=== PATIENT | female | born 1990 | race Caucasian/White ===

== ENCOUNTER → 2019-06-13 14:54 | Outpatient (CLI) | payer OTHER, SELFPAY ==
[2019-06-13 14:37] VITALS: BMI 57.9
[2019-06-13 15:28] LABS: Absolute Lymphocyte Count 2.49 X10^3/uL (0.83-4.51); Basophil# 0.08 X10^3/uL; Basophil% 0.8 % (0-1); Eosinophil# 0.25 X10^3/uL; Eosinophils% 2.6 % (0-5); Hematocrit 34.4 % (37-47); Lymphocyte # 2.49 X10^3/ul (4.0); Lymphocyte % 25.5 % (19-41); Mean Corpuscular Hgb 27.3 pg (27.0-32.0); Mean Corpuscular Volume 85.4 fL (81-99); Mean Platelet Vol. 9.4 fl (6.2-12.0); Monocyte# 0.85 X10^3/uL; Monocyte% 8.7 % (0-10); NRBC Flagged by Analyzer 0 % (0-5); Neutrophil # 6.04 X10^3/uL (2.7-7.7); Neutrophil % 61.9 % (47-70); Platelet Count 343 K/mm3 (150-450); RBC Distribution Width CV 13.3 % (11.6-14.6); RBC Distribution Width SD 41.6 fl (35.1-43.9); Red Blood Count 4.03 M/mm3 (4.2-5.4); White Blood Count 9.8 K/mm3 (4.4-11.0)
[2019-06-13 16:55] LABS: HIV - WCH Non-Reactive (Nonreactive); Hepatitis B Surface Antigen Non-Reactive (Nonreactive)
[2019-06-13 20:50] LABS: Chlamydia Trachomatis by PCR Negative (Negative); Neisserai gonorrhoeae by PCR Negative (Negative); Probe Check PASS; Sample Adequacy Control PASS; Specimen Processing Control PASS
[2019-06-15 01:53] LABS: Rapid Plasmin Reagin (RPR) NONREACTIVE (NONREACTIVE)
[2019-06-19 21:17] LABS: HPV Reflexed? NOT INDICATED
== END ==
LOC: PAVLAB 14:56
PROVIDERS: Referring Provider Obstetrics & Gynecology; Visit Provider Obstetrics & Gynecology
DX: Z34.90 Encounter for supervision of normal pregnancy, unspecified, unspecified trimester (principal); Z12.4 Encounter for screening for malignant neoplasm of cervix
CPT/HCPCS: 36415; 85025; 86592; 86703; 86762; 86850; 86900; 86901; 87086; 87088; 87340; 87491; 87591; 88175; G0145

== ENCOUNTER → 2019-06-20 15:04 | Outpatient (CLI) | payer OTHER, SELFPAY ==
[2019-06-13 14:37] VITALS: BMI 57.9
[2019-06-20 15:33] LABS: Glucose Challenge Gest 1H 50g 113 mg/dL (70-140)
== END ==
PROVIDERS: Referring Provider Obstetrics & Gynecology; Visit Provider Obstetrics & Gynecology
DX: O09.90 Supervision of high risk pregnancy, unspecified, unspecified trimester (principal); Z3A.00 Weeks of gestation of pregnancy not specified
CPT/HCPCS: 36415; 82950

== ENCOUNTER → 2019-10-05 13:56 | Outpatient (CLI) | payer OTHER, SELFPAY ==
[2019-10-05 13:25] VITALS: BMI 57.9
[2019-10-05 14:32] LABS: Absolute Neutrophil Count 7.2 X10^3/uL (2.0-7.7); Basophil# 0.05 X10^3/uL; Basophil% 0.5 % (0-1); Eosinophil# 0.28 X10^3/uL; Eosinophils% 2.7 % (0-5); Hematocrit 31.6 % (37-47); Lymphocyte % 19.6 % (19-41); Mean Corp Hgb Conc 31.6 g/dL (32-36); Mean Corpuscular Hgb 27.1 pg (27.0-32.0); Mean Corpuscular Volume 85.6 fL (81-99); Mean Platelet Vol. 9.5 fl (6.2-12.0); Monocyte% 5.9 % (0-10); NRBC Flagged by Analyzer 0 % (0-5); Neutrophil # 7.19 X10^3/uL (2.7-7.7); Neutrophil % 70.4 % (47-70); Platelet Count 354 K/mm3 (150-450); RBC Distribution Width CV 13.2 % (11.6-14.6); RBC Distribution Width SD 40.4 fl (35.1-43.9); Red Blood Count 3.69 M/mm3 (4.2-5.4); White Blood Count 10.2 K/mm3 (4.4-11.0)
[2019-10-05 14:44] LABS: Protein, Urine (Random) 15.7 mg/dL (<11.9); Protein:Creat Ratio 74 mg/g CRE (0-200)
[2019-10-05 14:46] LABS: ALB/GLOB Ratio 0.7 RATIO (0.9-2.4); AST(SGOT) 9 U/L (15-37); Alanine Aminotransfer ALT/SGPT 17 U/L (13-56); Albumin, Serum 2.7 g/dL (3.2-5.0); Alkaline Phosphatase 71 U/L (45-117); Anion Gap 6 (5-15); BUN 6 mg/dL (7-18); BUN/Creat Ratio 11.3 RATIO (10-20); Calcium,Total 8.4 mg/dL (8.5-10.1); Chloride 105 mmol/L (98-107); Creatinine, Serum 0.53 mg/dL (0.55-1.02); EST Glomerular Filtration Rate 144 mL/min (>60); Est Glom Filt Rate - Afr Amer 174 mL/min (>60); Glucose 125 mg/dL (74-106); Glucose Challenge Gest 1H 50g 125 mg/dL (70-140); Potassium 3.8 mmol/L (3.5-5.1); Protein, Total 6.7 g/dL (6.4-8.2); Sodium Level 137 mmol/L (136-145)
== END ==
PROVIDERS: Referring Provider Obstetrics & Gynecology; Visit Provider Obstetrics & Gynecology
DX: O09.90 Supervision of high risk pregnancy, unspecified, unspecified trimester (principal); O26.892 Other specified pregnancy related conditions, second trimester; O16.2 Unspecified maternal hypertension, second trimester; Z3A.00 Weeks of gestation of pregnancy not specified
CPT/HCPCS: 36415; 80053; 82570; 82950; 84156; 85025; 86850; 86900; 86901

== ENCOUNTER → 2019-12-08 | Outpatient (CLI) | payer OTHER, SELFPAY ==
[2019-12-08 13:30] VITALS: BMI 57.9
== END | disposition home or self-care (01) ==
PROVIDERS: Referring Provider Obstetrics & Gynecology; Visit Provider Obstetrics & Gynecology
DX: O09.90 Supervision of high risk pregnancy, unspecified, unspecified trimester (principal); Z3A.00 Weeks of gestation of pregnancy not specified
CPT/HCPCS: 87081

== ENCOUNTER → 2019-12-14 11:21 | Outpatient (CLI) | payer OTHER, SELFPAY ==
[2019-12-08 13:30] VITALS: BMI 57.9
--- NOTE | 2019-12-14 11:22 | US_ITS ---
STUDY: SECOND AND THIRD TRIMESTER OBSTETRICAL ULTRASOUND - LIMITED REASON FOR EXAM: Female, 29 years old HIGH RISK PREG GROWTH LMP: March 26, 2019. PRIOR ULTRASOUND: None. TECHNIQUE: Transabdominal TECHNICAL QUALITY: Adequate. FINDINGS: There is a single intrauterine fetus. The fetus is in a cephalic presentation. There is demonstrated cardiac activity with a heart rate of 129 bpm. There is a normal amniotic fluid volume. The largest amniotic fluid pocket measures 4.8 cm. The amniotic fluid index (MACARENA) is 9.8 cm. The placenta is fundal in location. There are Grade 2 placental changes. The cervix was not measured due to head position. BIOMETRY: BPD: 9.37 cm: 38 weeks, 1 days HC: 34.42 cm: 39 weeks, 6 days AC: 25.85 cm: 39 weeks, 6 days FL: 7.17 cm: 36 weeks, 6 days Age by LMP: 37 weeks, 4 days. TYRONE by LMP: December 31, 2019. age by current US: 38 weeks, 5 days. TYRONE by current US: December 23, 2019. Estimated weight: 3633 grams, +/- 530 grams, 89 percentile. US/OB Limited With Biometrics IMPRESSION: Single live intrauterine gestation with a mean gestational age of 38 weeks and 5 days. Electronically Signed: Abraham Brar, at 15:17 EDT , Service support ,
--- NOTE | 2019-12-14 11:32 | US_ITS ---
STUDY: OBSTETRICAL ULTRASOUND - BIOPHYSICAL PROFILE REASON FOR EXAM: Female, 29 years old WELL BEING HIGH RISK LMP: March 26, 2019. PRIOR ULTRASOUND: None. TECHNIQUE: Transabdominal TECHNICAL QUALITY: Adequate. FINDINGS: There is a single intrauterine fetus. The fetus is in a cephalic presentation. There is demonstrated cardiac activity with a heart rate of 132 bpm. There is a normal amniotic fluid volume. The largest amniotic fluid pocket measures 4.8 cm. The amniotic fluid index (MACARENA) is 9.8 cm. The placenta is fundal in location. There are Grade 2 placental changes. Age by LMP: 37 weeks, 4 days. TYRONE by LMP: December 31, 2019. BIOPHYSICAL PROFILE: Breathing Movements (FBM): 2 Gross Body Movements (GBM): 2 Tone (FT): 2 Amniotic Fluid Volume (AFV): 2 TOTAL SCORE: / US/Biophysical Prof W/O Non Stres IMPRESSION: Normal biophysical profile of 02/23. Electronically Signed: Abraham Brar, at 14:20 EDT , Service support ,
== END ==
PROVIDERS: Referring Provider Obstetrics & Gynecology; Visit Provider Obstetrics & Gynecology
DX: O09.90 Supervision of high risk pregnancy, unspecified, unspecified trimester (principal); O99.210 Obesity complicating pregnancy, unspecified trimester; E66.9 Obesity, unspecified; Z3A.00 Weeks of gestation of pregnancy not specified
CPT/HCPCS: 76816; 76819

== ENCOUNTER 2019-12-29 10:55 | Inpatient (IN) | payer OTHER, SELFPAY ==
[2019-12-28 13:32] VITALS: BMI 57.9
[2019-12-29] VITALS (49 sets, daily range): BP systolic 93–176; BP diastolic 50–94; PULSE 74–100; RESP 14–18; TEMP 36–37.2; O2SAT 77–100; BMI 60.8
[2019-12-29] MEDS: Lactated Ringers 1,000 ML 50 ML IV (11:50)
[2019-12-29] MEDS: Oxytocin 30 units/NS 500 ml 30 UNITS/500 ML IV.SOLN IV (12:18)
[2019-12-29 12:22] LABS: Absolute Lymphocyte Count 1.81 X10^3/uL (0.83-4.51); Absolute Neutrophil Count 6.6 X10^3/uL (2.0-7.7); Basophil# 0.06 X10^3/uL; Basophil% 0.6 % (0-1); Eosinophil# 0.28 X10^3/uL; Eosinophils% 2.9 % (0-5); Hemoglobin 10.3 g/dL (12.0-15.0); Lymphocyte # 1.81 X10^3/ul (4.0); Lymphocyte % 18.8 % (19-41); Mean Corp Hgb Conc 31.2 g/dL (32-36); Mean Corpuscular Volume 83.3 fL (81-99); Mean Platelet Vol. 10.8 fl (6.2-12.0); Monocyte# 0.85 X10^3/uL; Monocyte% 8.8 % (0-10); NRBC Flagged by Analyzer 0 % (0-5); Neutrophil # 6.56 X10^3/uL (2.7-7.7); Neutrophil % 68.1 % (47-70); Platelet Count 381 K/mm3 (150-450); RBC Distribution Width CV 14.6 % (11.6-14.6); RBC Distribution Width SD 43.9 fl (35.1-43.9); Red Blood Count 3.96 M/mm3 (4.2-5.4); White Blood Count 9.6 K/mm3 (4.4-11.0)
--- NOTE | 2019-12-29 13:21 | HP.PCM_ITS ---
- Problem List (1) Obesity affecting Status: Acute Qualifiers: Comment: plan IOL 39-40 weeks. (2) Status: Acute Qualifiers: Comment: carrier, nipt, and afp screening declined. Anatomy US limited but normal, needs follow-up in 2 weeks (2nd follow-up US normal) echo, normal pre e and 28 wk labs (3) Rh negative status during Status: Acute Qualifiers: Comment: rhogam at 28 weeks and PRN (4) Supervision of high risk , antepartum Status: Acute Comment: PRR TYRONE 12/31/19 PC Maries Lux (5) BMI 50.0-59.9, adult Status: Chronic Comment: 1 tm glucola, growth us q 4 and weekly nsts after 32 weeks History and Physical Date of Admission: 12/29/19 Intake Vital Signs 12/28/19 Height 5 ft 8 in 12/28/19 Weight: 401 lb 2 oz 12/28/19 BMI 61.0 12/28/19 BP 138/80 H Intake Visit Reasons: 39 WK OB / NST Palliative Senior Np Required: No Is patient in pain?: No Allergies No Known Allergies Allergy (Verified 12/28/19 13:25) Medications acetaminophen 325 mg capsule 325 mg PO Q6H 06/13/19 [History Confirmed 12/28/19] vitamin#30 30 mg iron-10 mg iron-folic acid 1 mg-omg3 capsule cap PO cap 06/13/19 [History Confirmed 12/28/19] Last Menstral Period: 08/15/17 Zika: Zika virus screening: Negative : No PFSH PFSH Medical History Obesity affecting (Acute) Rh negative status during (Acute) BMI 50.0-59.9, adult (Chronic) Surgical History History of tonsillectomy (Acute) Family History Grandmother Breast cancer Social History (Updated 12/28/19 @ 14:[address] Helga Ryan MD) Smoking Status: Former smoker alcohol intake: never substance use type: does not use caffeine: Yes frequency: daily seatbelt use: always do you feel safe at home: Yes additional social history: Bulmaro Hernández Patient works at [employer] Pregancy History 2 Elective abortions Hx Para 1 Spontaneous abortions Hx # Term Pregnancies Ectopic pregnancies Hx # Pregnancies Multiple births # of living children Past Pregnancies Del. Date Name GA/Weeks Outcome Route Bth Weight Infant Gen Labor Lgth Anesthesia Del Locatn Provider FOB Unknown 2015 Darrion 40 live - full term 7lb12 oz Tonio HPI 39 WK OB / NST : Details: YE NIELSEN is a 29 year old @ 39w presents for IOL secondary to obesity. OB Visit TYRONE Calculator Estimated Delivery Date Method Current WG Current Estimate 12/31/19 LMP (Certain) 39w 4d Expected Delivery Route/Plan Labor Preferences- labor support person: [] pain management options preferred: [] cut cord/dad catch: [] : [] PP control planned: [] discussed possible routes of delivery and associated risks: [] special requests: [] Specific Issue/Plans flu vaccine: given tdap vaccine: [] rhogam: [] LARC form signed: [] Problem list reviewed and updated with the most current plan of care details and appropriate orders placed. Relevant counseling for the gestational age provided. Continue routine care and follow up unless otherwise noted in visit notes/problem list details Initial Weight: Not Recorded Date EGA Weight BP Urine Prot Glucose FHR FuHt Pres Dilation Effaced St Visit Note 06/13/19 11w 2d 380 lb 160 07/13/19 15w 4d 377 lb 8 oz 137/81 Negative Negative 155 SM- no vb lof 08/09/19 19w 3d 381 lb 126/84 149 MH-no VB, LOF. Some light movement. Had anatomy US 2 day ago-goes back in 2 weeks to complete views. 09/08/19 23w 5d 380 lb 128/72 Negative Negative 157 SM- no vb lof good fm no regular ctx 10/05/19 27w 4d 377 lb 4 oz 146/82 134/80 Negative Negative 150 SM- no vb lof good fm no regular ctx. 11/09/19 32w 4d 383 lb 120/86 Negative Negative 150 SM- no vb lof good fm no regular ctx 12/08/19 36w 5d 393 lb 120/86 150 Cephalic 0.5 SM- no vb lof good fm no regular ctx 12/21/19 38w 4d 400 lb 6 oz 124/84 Negative Negative 154 Cephalic 1 20 -4 No VB, LOF or reg CTX. Go od FM. Reactive NST. Will discuss with ARAVIND for IOL at 39 wk next week 12/28/19 39w 4d 401 lb 2 oz 138/80 Negative Negative 145 Cephalic 1 SM- no vb lof good fm no regular ctx ACOG First Trimester First Trimester: Second Trimester Second Trimester: Signs and Symptoms of Labor, Selecting a care provider, Reproductive Life Planning, Care Planning, Tobacco Cessation, Depression/Anxiety and Intimate Partner Violence Third Trimester Third Trimester: Pain Management Plans, Labor support person(s), Immediate Larc, Movement Monitoring and Infant Feeding Yes ; discussed Trial of Labor after Counseling or discussed Circumcision preference Diagnostics Diagnostics Diagnostics Blood Type A NEGATIVE 10/05/19 Antibody Screen NEGATIVE 10/05/19 Glucose 1 Hr 50 gm 125 mg/dL (70-140) 10/05/19 HIV 1&2 Antibody Non-Reactive (Nonreactive) 06/13/19 Rubella IgG Antibody 25.0 IU/mL 06/13/19 Hgb 10.0 g/dL (12.0-15.0) L 10/05/19 Hct 31.6 % (37-47) L 10/05/19 RPR NONREACTIVE (NONREACTIVE) 06/13/19 Details: HIV: Urine Culture: Sequential Screen: NIPT Screen: ROS Const Reports system reviewed and no additional complaints, except as docu Card Reports system reviewed and no additional complaints, except as docu Resp Reports system reviewed and no additional complaints, except as docu GI Reports system reviewed and no additional complaints, except as docu, Reports nausea Reports system reviewed and no additional complaints, except as docu Musc Reports system reviewed and no additional complaints, except as docu Exam Const General: cooperative, healthy appearing, comfortable, anxious HENMT Head: normal to inspection Nose: external nose normal Face and sinus: normal facial exam Neck Neck: normal visual inspection, full ROM, no lymphadenopathy Thyroid: thyroid normal Chest Chest palpation & inspection: normal inspection of the chest Resp Effort & Inspection: normal respiratory effort GI Inspection: normal to inspection Palpation: soft, other (gravid uterus) Other: vertex and appropriate size for gestational age Other: Cervical Exam: Extrem General: pedal edema Office Procedures OB NST Non-Stress Test Indications for Monitoring: Yes other (obesity) Heart Rate Baseline: 145 Heart Rate Variability: moderate Movement: Present Heart Rate Accelerations: Present Decelerations: Absent Contractions: Absent Impression: Yes Reactive Non-Stress Test Category 1 Results POC Urinalysis 2 Dip (Clinic) Office Urine Glucose Negative Last Edit by Fatoumata Rosado on 12/28/19 13:35 Office Urine Protein Negative Last Edit by Fatoumata Rosado on 12/28/19 13:35 Assessment & Plan Problems 1. Obesity affecting in third trimester O99.213 plan IOL 39-40 weeks. 2. Rh negative status during in second trimester O26.892 rhogam at 28 weeks and PRN 3. 39 weeks gestation of Z3A.39 carrier, nipt, and afp screening declined. Anatomy US limited but normal, needs follow-up in 2 weeks (2nd follow-up US normal) echo, normal pre e and 28 wk labs 4. Supervision of high risk , antepartum O. PRR TYRONE 12/31/19 PC Maries Lux 5. BMI 50.0-59.9, adult Z68.43 1 tm glucola, growth us q 4 and weekly nsts after 32 weeks Plan plan IOL tomorrow with pit and fb. epi PRN. Orders Orders: OB NST Today O99.213 POC Urinalysis 2 Dip (Clinic) Today Coding Level of Care Code OB Routine Diagnoses Obesity affecting in third trimester O99.213 ??Trimester: third trimester Rh negative status during in second trimester O26.892 ??Trimester: second trimester 39 weeks gestation of Z3A.39 ??Weeks of gestation: 39 weeks Supervision of high risk , antepartum O09.90 BMI 50.0-59.9, adult Z68.43 Additional Codes Non-Stress Test (69497)
[2019-12-29] MEDS: 0.9% Normal Saline Single 100 ML IV.SOLN. IY (13:25)
[2019-12-29] MEDS: Lactated Ringers 500 ML 999 ML IV ×2 (15:55→16:59)
[2019-12-29] MEDS: fentaNYL-bupivacaine (epidural) 100 ML BAG EPIDURAL (16:53)
--- NOTE | 2019-12-29 18:40 | RAD_ITS ---
STUDY: X-RAY - ABDOMEN/PELVIS REASON FOR EXAM: Female, 29 years old. Postop . TECHNIQUE: Two AP supine views of the abdomen and pelvis. COMPARISON: None. FINDINGS: There is no bowel obstruction. There is air and stool to the level of the rectum. There are no radiodense foreign bodies. The visualized osseous structures are within normal limits. RAD/Abdomen Single View (Portable) IMPRESSION: No radiodense foreign body. No bowel obstruction. Electronically Signed: Sandip Howell, at 19:22 EDT Tel , Service support ,
--- NOTE | 2019-12-29 18:53 | PCM.OPRPT ---
Problem List (1) Obesity affecting Status: Acute Qualifiers: Comment: plan IOL 39-40 weeks. (2) Status: Acute Qualifiers: Comment: carrier, nipt, and afp screening declined. Anatomy US limited but normal, needs follow-up in 2 weeks (2nd follow-up US normal) echo, normal pre e and 28 wk labs (3) Rh negative status during Status: Acute Qualifiers: Comment: rhogam at 28 weeks and PRN (4) Supervision of high risk , antepartum Status: Acute Comment: PRR TYRONE 12/31/19 PC Giles Lux (5) BMI 50.0-59.9, adult Status: Chronic Comment: 1 tm glucola, growth us q 4 and weekly nsts after 32 weeks Delivery Classification: Stat Final TYRONE: 12/31/19 Gestational age: 39 Weeks and 5 Days olericulture professor: Kari mendoza olericulture professor: [place] Garrett Type of Anesthesia:: Epidural Special Medications: kostas Implants Used: none Date of Procedure: 12/29/19 Pre-Operative Diagnosis: funic presentation with prolapse Post-Operative Diagnosis: same Indications for : Distress, Prolapsed Cord Description of Procedure: 29-year-old G2, P1 presented at 39 weeks 5 days for induction of labor secondary to morbid obesity. Patient underwent Pitocin and Brady bulb. Brady bulb fell out spontaneously and the patient had spontaneous rupture membranes and then underwent epidural placement. 2 hours after rupture membranes patient was noted to have a mild variable and therefore vaginal exam was performed and a cord prolapse funic presentation was noted. OB ERT was called to perform an immediate stat . Heart rate was initially seen in the normal range with moderate variability and then developed recurrent variables and upon evaluation of the heart rate in the operating room heart rate was in the 60s. The head was elevated up off of the cord after immediate diagnosis of the funic presentation and was continued until delivery. Brady catheter was not present but the decision to go ahead without placement was made do to save time. Splash Betadine prep was performed and low transverse incision was made with the scalpel the fascia nicked in the midline and the incision attempted to be stretched laterally. Patient's BMI was 60 and subcutaneous tissue was very deep and the incision was extended laterally with the scalpel. Peritoneum entered digitally the incision stretched laterally. Rectus bellies were cut with bandage scissors to obtain additional room. The retractors were barely deep enough to reach inside the pelvis which made visualization difficult. A low transverse uterine incision was able to be made and the incision stretched and attempt made to deliver the head. Due to the depth of the subcu and the difficulty of body habitus attempts were made for delivery and was still difficult therefore the incision was extended in the rectus bellies in the fascia superiorly in the midline the small T incision to the fascia. The head started to turn the baby was converting to a transverse presentation therefore the left foot was grabbed delivered and the body rotated to the back was anterior the other leg delivered to the body delivered the arms were swept anteriorly and then it was attempted to flex the head but it became entrapped in the uterus and beneath the subcutaneous wall of the abdomen. The infant's body was manipulated and rotated in several different positions to provide access to the chin or mouth to aid in flexion of the head and the body was held with a blue towel. I then went to the opposite side of the bed to provide traction from a different angle and was able to put my finger in the mouth and flex the chin down for the rest of the head to deliver. The cord was clamped and cut and the infant handed off to waiting nurse for immediate resuscitation by the front office medical assistant. Apgars were 5 and 8 and ABG was unable to be run due to small sample size. Venous gas was a cord pH of 7.248. Infant was noted to be crying and moving all extremities with eventually good tone with no gross deficits or abnormalities but some mild tachypnea present. see Special care nursery note for additional resuscitation information. Uterus was attempted to be exteriorized it was difficult due to the thick anterior abdominal wall but was able to be visualized and the uterus was cleared of all clots and debris. Uterine incision was inspected and noted to be a low transverse with no significant extension or T-ing of the incision and it was closed in a single layer closure without complication and replaced to the maternal abdomen. Hemostasis was noted and Kostas was placed over the incision and again checked and noted to have excellent hemostasis. Peritoneum was closed with 3-0 Monocryl, copious irrigation used and fascia closed with 0 PDS strata fix suture. Small T-incision to the midline of the fascial incision was noted to be 2 cm in size and was reapproximated as part of the closure with good integrity checked superficially and deep to ensure complete integrity of the closure.Again the subcutaneous tissue was copiously irrigated. Subcutaneous space was closed in 2 layers with 2-0 Monocryl and the skin closed with 3-0 Monocryl. Steri-Strips and Mepilex silver dressing were applied. X-ray was performed to ensure all sponge lap and instrument counts were correct due to not having a pre-count and the patient was taken to recovery in stable condition Amniotic Membrane Rupture Type: Spontaneous Amniotic Fluid Description: Clear Placenta Disposition: [facility] Fluids Replaced: crystalloid Cord Entanglement: None Cord Vessel Description: 3 Vessels Esitmated Blood Loss (ml): 800 Infant Gender: Male (1 minute): 5 (5 minute): 8 Delayed cord clamping: Yes Antibiotic Given: Ancef 3 grams IV x1, Zithromax 500 mg/5 mL X1 Complications: None - Admit VTE Documentation VTE Present on Admission: No VTE Mechan Device Prophylaxis: SCD's Multi Select Codes - Urinary/Genital Urinary/Genital CPT Codes: 03445 Delivery [facility]
[2019-12-29] MEDS: Oxytocin 30 units/NS 500 ml 30 UNITS/500 ML IV.SOLN 167 UNITS IV (18:55)
[2019-12-29] MEDS: Lactated Ringers 1,000 ML 100 ML IV (22:04)
--- NOTE | 2019-12-29 22:30 | NURSING ---
Epidural catheter removed, blue tip intact.
[2019-12-29] MEDS: Cefazolin 2 GM in 0.9% Normal Saline 100 ML IV (23:27)
[2019-12-29] MEDS: Acetaminophen 500 MG Tablet 1000 MG PO (23:27)
[2019-12-29] MEDS: Ketorolac 30 MG/ML Syringe IV (23:27)
[2019-12-30] VITALS (12 sets, daily range): BP systolic 110–139; BP diastolic 53–95; PULSE 88–93; RESP 16–20; TEMP 36.1–37.3; O2SAT 98–99
[2019-12-30] MEDS: Ketorolac 30 MG/ML Syringe IV (06:07)
[2019-12-30] MEDS: Acetaminophen 500 MG Tablet 1000 MG PO ×3 (06:07→19:56)
[2019-12-30] MEDS: Enoxaparin 40 MG/0.4 ML Syringe SC ×2 (06:08→21:53)
[2019-12-30] MEDS: Cefazolin 2 GM in 0.9% Normal Saline 100 ML IV ×2 (06:08→12:45)
[2019-12-30] MEDS: 0.9% Saline Lock 10 ML Syringe IV ×2 (06:08→12:45)
--- NOTE | 2019-12-30 06:22 | PN.OBGYN_ITS ---
Patient Problems: Active and Suspected Problems (Last Reviewed 12/28/19 @ 13:32 by Fatoumata Rosado) Umbilical cord prolapse in labor and delivery, delivered (Acute) Status post emergency section (Acute) Subjective: doing well no complaints pain controlled no CP SOB N V ambulating well tolerating po lochia moderate, going well - Physical Exam Vitals/I&O's: Vital Signs Temp Pulse Resp BP Pulse Ox 97.0 F L 91 18 126/65 H 98 12/30/19 03:39 12/30/19 03:39 12/30/19 03:39 12/30/19 03:39 12/30/19 03:39 Oxygen Delivery Method Room Air Weight: 400 lb 5.751 oz Body Mass Index (BMI) 60.8 Intake and Output for Last 24 Hours 12/28/19 12/29/19 12/30/19 23:59 23:59 23:59 Intake Total 3076.35 / 3076.35 536.67 / 536.67 Output Total 300 / 300 Balance 2776.35 / 2776.35 536.67 / 536.67 General: Alert, Oriented x3 Laboratory Results 12/29/19 11:45: COVID-19 (MELANIE) Not Detected 12/29/19 11:50: WBC 9.6, RBC 3.96 L, Hgb 10.3 L, Hct 33.0 L, MCV 83.3, MCH 26.0 L, MCHC 31.2 L, RDW Std Deviation 43.9, RDW Coeff of Sadia 14.6, Plt Count 381, MPV 10.8, Immature Gran % (Auto) 0.800, Neut % (Auto) 68.1, Lymph % (Auto) 18.8 L, [place] % (Auto) 8.8, Eos % (Auto) 2.9, Baso % (Auto) 0.6, Absolute Neuts (auto) 6.6, Absolute Lymphs (auto) 1.81, Nucleated RBC % 0 12/29/19 11:50: Blood Type A NEGATIVE, Antibody Screen TNP 12/29/19 11:50: Antibody Screen NEGATIVE Current Medications Acetaminophen (Tylenol) 1,000 mg PO Q6 DANNI Last Admin: 12/30/19 06:07 Dose: 1,000 mg Documented by: Bisacodyl (Dulcolax) 10 mg RECTAL UD PRN PRN Reason: If no BM Enoxaparin Sodium (Lovenox) 40 mg SC BID [facility] Last Admin: 12/30/19 06:08 Dose: 40 mg Documented by: Hydrocortisone (Hytone) 1 applic TOPICAL TID PRN PRN; Protocol PRN Reason: Discomfort Hydromorphone HCl (Dilaudid Inj) 0.5 - 1.5 mg IV Q3H PRN PRN PRN Reason: Pain Score 4-10/10 Stop: 12/30/19 19:29 Cefazolin Sodium 2 gm/ Sodium (Chloride) 110 mls @ 150 mls/hr IV Q6 [facility] Stop: 12/30/19 17:00 Last Admin: 12/30/19 06:08 Dose: 150 mls/hr Documented by: Lactated Ringer's () 1,000 mls @ 100 mls/hr IV .Q10H [facility] Last Infusion: 12/30/19 04:27 Dose: 0 mls/hr Documented by: Naloxone HCl 4 mg/ Dextrose 504 mls @ 0 mls/hr IV .Q0M PRN; Protocol PRN Reason: Respiratory depression Naloxone HCl 4 mg/ Dextrose 504 mls @ 0 mls/hr IV .Q0M PRN; Protocol PRN Reason: To maintain Resp. rate >10 Ketorolac Tromethamine (Toradol (Bkc)) 30 mg IV Q6H [facility] Stop: 12/30/19 18:01 Last Admin: 12/30/19 06:07 Dose: 30 mg Documented by: Methylergonovine Maleate (Methergine) 0.2 mg IM X1 PRN PRN Reason: Uterine Atony Naloxone HCl (Narcan) 0.02 mg IV Q1M PRN PRN Reason: RR <10 and pt unresponsive Naproxen (Naprosyn) 500 mg PO Q8 [facility] Ondansetron HCl (Zofran) 4 mg IV Q4H PRN PRN PRN Reason: Nausea Oxycodone HCl (Oxyir) 5 - 10 mg PO Q4H PRN PRN PRN Reason: Pain Score 4-10/10 Prochlorperazine Edisylate (Compazine Iv) 10 mg IV Q6H PRN PRN PRN Reason: NAUSEA Senna/Docusate Sodium (Senokot-S, Nicci-Colace) 0 tablet PO DAILY DANNI Simethicone (Mylicon) 80 mg PO PCHS PRN PRN Reason: Indigestion/stomach pain Last Admin: 12/30/19 04:27 Dose: 80 mg Documented by: Sodium Chloride () 5 - 15 ml IV UD PRN PRN Reason: SALINE FLUSH Last Admin: 12/30/19 06:08 Dose: 10 ml Documented by: Medical Necessity - Tobacco Use Smoking Status: Former smoker Assessment/Plan All Active Problems (Last Reviewed 12/28/19 @ 13:32 by Fatoumata Rosado) Umbilical cord prolapse in labor and delivery, delivered (Acute) Status post emergency section (Acute) Obesity affecting (Acute) Rh negative status during (Acute) (Acute) Supervision of high risk , antepartum (Acute) s/p LTCS PPD # 1 1. routine post care- didn't get duramorph, IV and oral pain control ordered 2. breast feeding- support given 3. rh negative- rhogam PRN 4. rubella immune peripartum elevated temp- afebrile postop. 24 hours of antibiotics given due to stat CS and morbid obesity lovenox DVT prophylaxis
--- NOTE | 2019-12-30 06:27 | DCINST_ITS ---
Discharge Diet: No Restrictions Discharge Activity: May Not Drive - for 2 weeks, May not drive while taking narcotic pain medications., May Shower, May Take a Tub Bath - in 7 days May resume sexual activity in: 4-6 weeks Lifting Restrictions: 20 pounds Additional Activity Instructions:: Nothing in the vagina for 4-6 weeks. You may return to work/school in 6 weeks. Call your doctor if your incision/area has: Continuous Slow Oozing, Sudden Increased Bleeding, Increased Pain/ Swelling, Increased Redness, Foul Smelling Discharge Call your doctor if you observe: Fever of 101 or Higher, Using more than one pad per hour - for 2 hours Suture Line Care: Avoid Pulling/Pushing, Avoid Pinching/Bending Cleanse incision/area with: Keep Dressing Clean & Dry Additional Instructions: If you experience any of the following, contact your healthcare provider. * Bleeding that soaks a pad every hour for 2 hours * Fever 100.4 or higher * Unrelieved incision or abdominal pain * Swelling, redness, discharge or bleeding from your incision or episiotomy site * Your incision begins to separate * Problems urinating (including inability to urinate or burning while urinating). * Visual changes * Severe headache * Flu-like symptoms * Pain or redness in one of both of your breasts * Pain, warmth, tenderness or swelling in your legs, especially the calf area * Frequent nausea and vomiting * Symptoms of depression or anxiety If you experience any of the following, call 911 or go to the nearest Emergency Room. * Chest pain * Problems breathing * Seizure activity * Partial or complete paralysis of a body part, slurred speech, weakness or drooping of the face, or a sudden inability to walk or hold your balance Allergies/Adverse Reactions: Allergies No Known Allergies Allergy (Verified 12/29/19 11:37) Medications to take at Discharge acetaminophen 325 mg capsule 325 mg PO Q6H 06/13/19 vitamin#30 30 mg iron-10 mg iron-folic acid 1 mg-omg3 capsule 1 cap PO DAILY cap 06/13/19 Naproxen [Naprosyn] 250 - 500 mg PO Q8H PRN PRN #30 tab 12/30/19 Oxycodone HCl/Acetaminophen [Percocet 5-325] 1 - 2 tablet PO Q6H PRN PRN 7 Days #15 tablet 12/30/19 The following prescriptions were given: Naproxen [Naprosyn] 250 - 500 mg PO Q8H PRN PRN #30 tab PRN Reason: MILD PAIN Transmission Status: Pending to [facility] Oxycodone HCl/Acetaminophen [Percocet 5-325] 1 - 2 tablet PO Q6H PRN PRN 7 Days #15 tablet PRN Reason: Pain Transmission Status: Sent to [facility] Follow-Up: Call to make an appointment with your doctor for an incision check in 1-2 weeks. You will also need a 6 week post- follow up appointment. Test results from this visit will be discussed in further detail at your follow- up appointment, if applicable. Please Follow Up With: Helga Ryan MD - Call to make an appointment for an incision check in 1-2 [phone] When: You will need a post- check in 6 weeks. Primary Care Physician: Care Physician,No Primary [Primary Care Provider] -
[2019-12-30 06:44] LABS: Mean Corpuscular Volume 83.8 fL (81-99); Mean Platelet Vol. 10.2 fl (6.2-12.0); Platelet Count 275 K/mm3 (150-450); RBC Distribution Width CV 14.8 % (11.6-14.6); RBC Distribution Width SD 45.1 fl (35.1-43.9); Red Blood Count 3.46 M/mm3 (4.2-5.4); White Blood Count 9.1 K/mm3 (4.4-11.0)
[2019-12-30] MEDS: Senna/Docusate Sodium 1 Tablet PO (09:53)
[2019-12-30] MEDS: Naproxen 250 MG Tablet 500 MG PO ×2 (12:43→21:53)
[2019-12-31] VITALS (7 sets, daily range): BP systolic 134–142; BP diastolic 68–96; PULSE 82–91; RESP 14–18; TEMP 36.2–36.6
[2019-12-31] MEDS: Acetaminophen 500 MG Tablet 1000 MG PO ×2 (02:00→07:53)
[2019-12-31] MEDS: Naproxen 250 MG Tablet 500 MG PO (06:10)
--- NOTE | 2019-12-31 07:24 | PN.OBGYN_ITS ---
Patient Problems: Active and Suspected Problems (Last Reviewed 12/28/19 @ 13:32 by Fatoumata Rosado) Status post emergency section (Acute) Umbilical cord prolapse in labor and delivery, delivered (Acute) Subjective: doing well no complaints pain controlled no CP SOB N V ambulating well tolerating po lochia moderate, going well - Physical Exam Vitals/I&O's: Vital Signs Temp Pulse Resp BP Pulse Ox 97.1 F L 82 14 134/90 H 98 12/31/19 01:57 12/31/19 01:58 12/31/19 01:57 12/31/19 01:58 12/30/19 08:15 Oxygen Delivery Method Room Air Weight: 400 lb 5.751 oz Body Mass Index (BMI) 60.8 Intake and Output for Last 24 Hours 12/29/19 12/30/19 12/31/19 23:59 23:59 23:59 Intake Total 3076.35 / 3076.35 1256.67 / 1256.67 Output Total 300 / 300 300 / 300 Balance 2776.35 / 2776.35 956.67 / 956.67 General: Alert, Oriented x3 Laboratory Results 12/30/19 06:35: Screen NEGATIVE, Baby's Blood Type A POSITIVE, Baby's JOSE D NEGATIVE Current Medications Acetaminophen (Tylenol) 1,000 mg PO Q6 [facility] Last Admin: 12/31/19 02:00 Dose: 1,000 mg Documented by: Bisacodyl (Dulcolax) 10 mg RECTAL UD PRN PRN Reason: If no BM Enoxaparin Sodium (Lovenox) 40 mg SC BID [facility] Last Admin: 12/30/19 21:53 Dose: 40 mg Documented by: Hydrocortisone (Hytone) 1 applic TOPICAL TID PRN PRN; Protocol PRN Reason: Discomfort Naloxone HCl 4 mg/ Dextrose 504 mls @ 0 mls/hr IV .Q0M PRN; Protocol PRN Reason: Respiratory depression Naloxone HCl 4 mg/ Dextrose 504 mls @ 0 mls/hr IV .Q0M PRN; Protocol PRN Reason: To maintain Resp. rate >10 Methylergonovine Maleate (Methergine) 0.2 mg IM X1 PRN PRN Reason: Uterine Atony Naloxone HCl (Narcan) 0.02 mg IV Q1M PRN PRN Reason: RR <10 and pt unresponsive Naproxen (Naprosyn) 500 mg PO Q8 [facility] Last Admin: 12/31/19 06:10 Dose: 500 mg Documented by: Ondansetron HCl (Zofran) 4 mg IV Q4H PRN PRN PRN Reason: Nausea Oxycodone HCl (Oxyir) 5 - 10 mg PO Q4H PRN PRN PRN Reason: Pain Score 4-10/10 Prochlorperazine Edisylate (Compazine Iv) 10 mg IV Q6H PRN PRN PRN Reason: NAUSEA Senna/Docusate Sodium (Senokot-S, Nicci-Colace) 0 tablet PO DAILY [facility] Last Admin: 12/30/19 09:53 Dose: 1 tablet Documented by: Simethicone (Mylicon) 80 mg PO PCHS PRN PRN Reason: Indigestion/stomach pain Last Admin: 12/30/19 09:53 Dose: 80 mg Documented by: Sodium Chloride () 5 - 15 ml IV UD PRN PRN Reason: SALINE FLUSH Last Admin: 12/30/19 12:45 Dose: 10 ml Documented by: Medical Necessity - Tobacco Use Smoking Status: Former smoker Assessment/Plan All Active Problems (Last Reviewed 12/28/19 @ 13:32 by Fatoumata Rosado) Status post emergency section (Acute) Umbilical cord prolapse in labor and delivery, delivered (Acute) Obesity affecting (Acute) Rh negative status during (Acute) (Acute) Supervision of high risk , antepartum (Acute) s/p LTCS PPD # 2 1. routine post care- didn't get duramorph, IV and oral pain control ordered 2. breast feeding- support given 3. rh negative- rhogam PRN 4. rubella immune peripartum elevated temp- afebrile postop. s/p 24 hours of antibiotics given due to stat CS and morbid obesity lovenox DVT prophylaxis
[2019-12-31] MEDS: Senna/Docusate Sodium 1 Tablet PO (10:36)
[2019-12-31] MEDS: Enoxaparin 40 MG/0.4 ML Syringe SC (10:37)
--- NOTE | 2019-12-31 12:17 | NURSING ---
1205 pt dc at this time. rn instructed pt on last time she had tylenol and naprosyn so she knew when to take next dose, pt confirmed understanding
== END 2019-12-31 12:05 | disposition home or self-care (01) | DRG 788 ==
PROVIDERS: Admitting Provider Obstetrics & Gynecology; Referring Provider Obstetrics & Gynecology; Visit Provider Obstetrics & Gynecology
DX: O69.0XX0 Labor and delivery complicated by prolapse of cord, not applicable or unspecified (principal); O32.2XX0 Maternal care for transverse and oblique lie, not applicable or unspecified; O77.9 Labor and delivery complicated by fetal stress, unspecified; O99.214 Obesity complicating childbirth; E66.9 Obesity, unspecified; Z37.0 Single live birth; Z3A.39 39 weeks gestation of pregnancy; Z67.91 Unspecified blood type, Rh negative; Z87.891 Personal history of nicotine dependence
CPT/HCPCS: 59025; 59050; 74018; 85025; 85027; 85461; 86850; 86900; 86901; 87635; 90384; 99218; G2023; J7120; A4216; G0378; J2405; J2790; U0003

== ENCOUNTER 2021-08-25 15:15 | Outpatient (CLI) | payer BC, SELFPAY | END 2021-08-25 23:59 | disposition home or self-care (01) | LOC: IMMUN 08-26 15:15 | PROVIDERS: Visit Provider Family Medicine | DX: Z23 Encounter for immunization (principal) ==

== ENCOUNTER → 2022-08-27 | Outpatient (CLI) | payer BC, SELFPAY ==
[2022-08-27 11:34] LABS: Hemoglobin A1c 5.9 % (3.8-5.6)
[2022-08-27 11:53] LABS: AST(SGOT) 22 U/L (15-37); Alanine Aminotransfer ALT/SGPT 49 U/L (13-56); Alkaline Phosphatase 54 U/L (45-117); Anion Gap 8 (5-15); BUN 12 mg/dL (7-18); BUN/Creat Ratio 14.9 RATIO (10-20); Calcium,Total 9.2 mg/dL (8.5-10.1); Chloride 107 mmol/L (98-107); Cholesterol 136 mg/dL (200); EST Glomerular Filtration Rate 88 mL/min (>60); Est Glom Filt Rate - Afr Amer 106 mL/min (>60); Glucose 99 mg/dL (74-106); High Density Lipoprotein 43 mg/dL; Sodium Level 142 mmol/L (136-145); Thyroid Stim Hormone (TSH) 2.16 uIU/mL (0.358-3.74); Triglycerides 169 mg/dL; Very Low Density Lipoprotein 34 mg/dL (5-40)
[2022-08-27 12:21] LABS: Vitamin D,25 Hydroxy 15.4 ng/mL
[2022-09-04 19:14] LABS: HPV APTIMA, High Risk Negative (Negative)
== END | disposition home or self-care (01) ==
LOC: PAVLAB 10:56
PROVIDERS: Referring Provider Obstetrics & Gynecology; Visit Provider Obstetrics & Gynecology
DX: E66.9 Obesity, unspecified (principal)
CPT/HCPCS: 36415; 80053; 80061; 82306; 83036; 84443; 87624; 88175; G0145

== ENCOUNTER → 2022-10-23 | Outpatient (CLI) | payer BC, SELFPAY | END | disposition home or self-care (01) | LOC: SL 20:13 | PROVIDERS: PCP Internal Medicine; Visit Provider Nurse Practitioner Acute Care | DX: G47.10 Hypersomnia, unspecified (principal); R06.83 Snoring; G47.30 Sleep apnea, unspecified; R68.2 Dry mouth, unspecified | CPT/HCPCS: 95811 ==

== ENCOUNTER → 2022-11-10 | Outpatient (CLI) | payer BC, SELFPAY | END | disposition home or self-care (01) | LOC: SL 12:24 | PROVIDERS: PCP Internal Medicine; Visit Provider Nurse Practitioner Acute Care | DX: G47.33 Obstructive sleep apnea (adult) (pediatric) (principal); Z99.89 Dependence on other enabling machines and devices ==